=== PATIENT | female | born 1985 | race African-American/Black ===

== ENCOUNTER 2017-08-23 12:13 | Emergency (ER) | payer MEDICAID ==
[~2017-08-23] VITALS: Ht 157.5 cm; Wt 78.0 kg
[2017-08-23] MEDS ORDERED: NAPROXEN 500MG TABLET PO ONE (14:00)
[2017-08-23 14:24] VITALS: BP 117/76
== END 2017-08-23 14:35 | disposition home or self-care (01) ==
LOC: ER 13:01
DX: S90.121A Contusion of right lesser toe(s) without damage to nail, initial encounter (principal); J45.909 Unspecified asthma, uncomplicated; F17.200 Nicotine dependence, unspecified, uncomplicated; Z88.2 Allergy status to sulfonamides; W22.8XXA Striking against or struck by other objects, initial encounter; Y93.89 Activity, other specified; Y92.89 Other specified places as the place of occurrence of the external cause; Y99.8 Other external cause status
CPT/HCPCS: 99282